=== PATIENT | female | born 1955 | race Caucasian/White ===

== ENCOUNTER 2016-09-04 17:39 | Emergency (ER) | payer OTHER ==
[~2016-09-04] VITALS: Ht 162.5 cm; Wt 53.1 kg
[2016-09-04] MEDS ORDERED: LANSOPRAZOLE30 MG PO (17:51)
[2016-09-04] MEDS ORDERED: MELOXICAM7.5 MG PO (17:51)
[2016-09-04] MEDS ORDERED: ANAPROX DS550 MG PO (19:25)
== END 2016-09-04 19:19 | disposition home or self-care (01) ==
LOC: ED 17:39
DX: S62.102A Fracture of unspecified carpal bone, left wrist, initial encounter for closed fracture (principal); Z88.8 Allergy status to other drugs, medicaments and biological substances; W18.30XA Fall on same level, unspecified, initial encounter; Y93.K1 Activity, walking an animal; Y92.9 Unspecified place or not applicable; Y99.9 Unspecified external cause status

== ENCOUNTER → 2016-09-10 | Outpatient (CLI) | payer OTHER ==
[~2016-09-10] MED LIST: ANAPROX DS550 MG PO; LANSOPRAZOLE30 MG PO; MELOXICAM7.5 MG PO
== END | disposition home or self-care (01) ==
LOC: ORTHO 03:55
DX: M25.532 Pain in left wrist (principal)

== ENCOUNTER → 2017-06-06 | Outpatient (CLI) | payer OTHER | END | disposition home or self-care (01) | LOC: RAD 01:48 | DX: M81.0 Age-related osteoporosis without current pathological fracture (principal); N95.1 Menopausal and female climacteric states ==

== ENCOUNTER → 2017-10-23 | Outpatient (CLI) | payer OTHER | END | disposition home or self-care (01) | LOC: MAMMO 08:56 | DX: Z12.31 Encounter for screening mammogram for malignant neoplasm of breast (principal) ==